=== PATIENT | female | born 1930 | race Two or more races ===

== ENCOUNTER 2017-10-19 07:29 | Day surgery (SDC) | payer OTHER ==
[~2017-10-19 07:29] MED LIST: ANTIVERT12.5 MG PO; COZAAR25 MG PO; EYE HEALTH ADU1 EACH PO; HYZAAR 100-121 UDTAB; LIPITOR20 MG; SINGULAIR 10MG10 MG PO; TRICOR48 MG
== END 2017-10-19 10:25 | disposition home or self-care (01) ==
LOC: CIR.AMB 07:29
DX: G56.01 Carpal tunnel syndrome, right upper limb (principal)